=== PATIENT | female | born 1935 | race Caucasian/White ===

== ENCOUNTER 2017-01-01 11:51 | Emergency (ER) | payer MEDICARE, BC ==
[2017-01-01] MEDS ORDERED: Acetaminophen 325 MG Tab PO ONE (12:23)
--- NOTE | 2017-01-01 12:28 | EDM.PDOC ---
ED HPI GENERAL MEDICAL PROBLEM - General Chief Complaint: Head Injury Stated Complaint: FALL Time Seen by Provider: 01/01/17 12:00 Source of Information: Reports: Patient, Family, RN Notes Reviewed (6) - History of Present Illness INITIAL COMMENTS - FREE TEXT/NARRATIVE: 81-year-old female comes in private vehicle having tripped and fallen landing hard with her face on the cement outside a restaurant. She did not suffer any LOC. There was a lot of bleeding from the nose initially. She does have moderate discomfort of her nose. She also did strike her forehead and does have mild to moderate headache. No major neck back chest hip discomfort. She has mild soreness of her knees but has been ambulatory. She denies current abdominal pain and has had no nausea or vomiting status post her fall. Face Pain Score (Numeric/FACES): 8 - Related Data Allergies Allergy/AdvReac Type Severity Reaction Status Date / Time codeine Allergy Abdominal Verified 01/01/17 12:06 Pain Home Meds: Home Meds Aspirin [Halfprin] 81 mg PO DAILY 01/01/17 [History] Past Medical History HEENT History: Reports: Cataract, Impaired Vision Other Cardiovascular History: A flutter hx with ablation Respiratory History: Reports: SOB Musculoskeletal History: Reports: Arthritis, Fracture Psychiatric History: Reports: Depression Endocrine/Metabolic History: Reports: Hypothyroidism, Obesity/BMI 30+ - Past Surgical History HEENT Surgical History: Reports: Adenoidectomy, Cataract Surgery, Tonsillectomy GI Surgical History: Reports: Bariatric Procedure Musculoskeletal Surgical History: Reports: Knee Replacement Dermatological Surgical History: Reports: Skin Biopsy Social & Family History - Family History Family Medical History: Noncontributory - Tobacco Use Smoking Status *Q: Former Smoker Used Tobacco, but Quit: Yes Month Tobacco Last Used: 1964 - Recreational Drug Use Recreational Drug Use: No ED ROS GENERAL - Review of Systems Review Of Systems: See Below Constitutional: Denies: Diaphoresis HEENT: Reports: Nose Pain, Other (She did have major nosebleed but that has stopped). Denies: Dental Pain, Ear Discharge Respiratory: Denies: Shortness of Breath, Pleuritic Chest Pain Cardiovascular: Denies: Chest Pain, Lightheadedness GI/Abdominal: Denies: Abdominal Pain, Nausea, Vomiting Musculoskeletal: Reports: Joint Pain (Mild bilateral knee discomfort, not severe , no major pain with weightbearing). Denies: Neck Pain, Shoulder Pain, Arm Pain , Back Pain, Leg Pain Skin: Reports: Other (She did suffer some abrasion injury to the area of her face just above her upper lip going up to the base of her nose) Neurological: Reports: Headache. Denies: Numbness (Mild to moderate), Tingling , Trouble Speaking, Difficulty Walking, Weakness ED EXAM, HEAD INJURY - Physical Exam Exam: See Below General Appearance: Alert, Mild Distress Head: Atraumatic (There is no swelling or bruising of her scalp. No major swelling or bruising or tenderness of the forehead), Facial Swelling (There is swelling and tenderness of her nose, evidence of prior bleeding, no active bleeding at this time) Ears: Normal External Exam Nose: Nasal Swelling, Dried Blood, Other (Moderate tenderness) Throat/Mouth: Normal Inspection, Normal Oropharynx, Other Neck: Full Range of Motion, Tenderness (She is nontender posterior midline, she does have some tenderness of the left base, no visible swelling.) Respiratory: No Respiratory Distress, Lungs Clear, Normal Breath Sounds Cardiovascular: Regular Rate, Rhythm GI/Abdominal Exam: Soft, Non-Tender Extremities: Other (There is tenderness and mild bruising of the left thumb, she does have some motion but does have pain with flexion and extension of the thumb. No visible deformity.). No: Joint Swelling, Arm Pain, Leg Pain Neurologic: No Motor/Sensory Deficits, Alert, Normal Mood/Affect, Oriented x 3 Skin: Normal Color, Warm/Dry Course - Vital Signs Last Recorded V/S: Last Vital Signs Temp 98.1 F 01/01/17 11:58 Pulse 76 01/01/17 11:58 Resp 24 H 01/01/17 11:58 BP Pulse Ox 92 L 01/01/17 11:58 - Orders/Labs/Meds Orders: Active Orders 24 hr Category Date Time Status Fingers Thumb Lt FA [CR] Stat Exams 01/01/17 12:54 Taken Meds: Medications Discontinued Medications Generic Name Dose Route Start Last Admin Trade Name Freq PRN Reason Stop Dose Admin Acetaminophen 975 mg 01/01/17 12:23 01/01/17 12:29 Tylenol PO 01/01/17 12:24 975 mg NOW ONE Administration - Re-Assessments/Exams Free Text/Narrative Re-Assessment/Exam: 01/01/17 13:30 X-rays of the nose show no fracture, x-rays of the left thumb also show no fracture. She does have some mild stiffness and soreness of her left neck, left posterior base. Or she does not have posterior bony tenderness or severity of pain compatible with fracture. Therefore I am not going to CT her neck at this time. Risk/Benefits of doing that exam have been discussed with patient and her and they agreed to not proceed with next CT at this time. Departure - Departure Time of Disposition: 13:28 Disposition: Home, Self-Care 01 Condition: Fair Clinical Impression: Fall Qualifiers: Encounter type: initial encounter Qualified Code(s): W19.XXXA - Unspecified fall, initial encounter Nasal contusion Qualifiers: Encounter type: initial encounter Qualified Code(s): S00.33XA - Contusion of nose, initial encounter Facial abrasion Qualifiers: Encounter type: initial encounter Qualified Code(s): S00.81XA - Abrasion of other part of head, initial encounter Thumb contusion Qualifiers: Encounter type: initial encounter Damage to nail status: without damage - Discharge Information Referrals: Rod Mckinley MD [Primary Care Provider] - Forms: ED Department Discharge Additional Instructions: Rest, ice packs and elevation as needed for swelling, you may alternate Tylenol and ibuprofen as needed for discomfort, alternate ice and heat for your left neck discomfort may also be helpful. Follow-up clinic if symptoms not resolving as expected, return to ED if symptoms worsening in any way. - My Orders Last 24 Hours: My Active Orders 01/01/17 12:54 Fingers Thumb Lt FA [CR] Stat - Assessment/Plan Last 24 Hours: My Active Orders 01/01/17 12:54 Fingers Thumb Lt FA [CR] Stat
--- NOTE | 2017-01-01 13:22 | CR ---
Nasal bone: views of the nasal bone were obtained. No discrete fracture is seen. Small air-fluid level is suggested to the left maxillary sinus. Minimal mucosal thickening is seen within the right maxillary sinus. Surrounding bony structures appear intact. Impression: 1. Small air-fluid level within the left maxillary sinus. If patient has no symptoms of acute sinusitis this may represent retained secretions. 2. Minimal mucosal thickening within the right maxillary sinus. 3. No definite nasal bone fracture is appreciated. Diagnostic code #3
--- NOTE | 2017-01-01 13:42 | CR ---
Left thumb: Four views of the left thumb were obtained. Moderate degenerative change is noted within the CMC joint with joint space narrowing and osteophytes. Joint space narrowing and osteophytes also noted within the IP joint of the thumb. Soft tissue swelling is identified. No acute fracture or other bony abnormality is appreciated. No opaque foreign object is seen. Impression: 1. Degenerative change as noted above. 2. Soft tissue swelling. 3. No acute bony abnormality is identified. Diagnostic code #2
== END 2017-01-01 13:40 | disposition home or self-care (01) ==
LOC: JD.ED 11:51
DX: S00.33XA Contusion of nose, initial encounter (principal); S60.012A Contusion of left thumb without damage to nail, initial encounter; S00.81XA Abrasion of other part of head, initial encounter; F32.9 Major depressive disorder, single episode, unspecified; E03.9 Hypothyroidism, unspecified; E66.9 Obesity, unspecified; Z98.49 Cataract extraction status, unspecified eye; Z98.84 Bariatric surgery status; Z98.890 Other specified postprocedural states; Z96.659 Presence of unspecified artificial knee joint; Z87.891 Personal history of nicotine dependence; Z79.82 Long term (current) use of aspirin; Z88.5 Allergy status to narcotic agent; W01.198A Fall on same level from slipping, tripping and stumbling with subsequent striking against other object, initial encounter; Z68.43 Body mass index [BMI] 50.0-59.9, adult
CPT/HCPCS: 70160; 73140; 99284; A9270; 99282

== ENCOUNTER 2018-09-24 13:51 | Emergency (ER) | payer MEDICARE, BC ==
[2018-09-24 14:07] VITALS: BP 145/73
[2018-09-24] MEDS ORDERED: HYDROmorphone 1 MG/ML Syringe IM ONE (14:22)
--- NOTE | 2018-09-24 14:28 | EDM.PDOC ---
ED HPI GENERAL MEDICAL PROBLEM - General Chief Complaint: Head Injury Stated Complaint: FALL Time Seen by Provider: 09/24/18 14:02 Source of Information: Reports: Patient, RN Notes Reviewed History Limitations: Reports: No Limitations - History of Present Illness INITIAL COMMENTS - FREE TEXT/NARRATIVE: Patient is an 83-year-old female who presents to the ED for the evaluation of a head injury. The patient states that she was at a restaurant earlier, when she lost her balance in the bathroom and fell. She notes that she has issues tripping over her own 2 feet. She denies any sort of dizziness or lightheadedness that attributed to the fall. She denies any loss of consciousness after the fall. She did hit her head, she thinks on the bathroom door. She has a 2 cm linear laceration to her forehead, with a hematoma surrounding this and to the back of her head as well. She is not complaining of any neck pain or back pain at this time. She notes that she has some minor pain into the right hand and right wrist. However there is no deformity noted to that extremity. She states she does have a headache at this time. She denies being on any blood thinners, but does take a baby aspirin at night time. She would rate her pain at an 8 out of 10 today. Head Pain Score (Numeric/FACES): 7 - Related Data Allergies Allergy/AdvReac Type Severity Reaction Status Date / Time codeine Allergy Abdominal Verified 09/24/18 14:00 Pain Home Meds: Home Meds Aspirin [Halfprin] 81 mg PO DAILY 01/01/17 [History] Past Medical History HEENT History: Reports: Cataract, Impaired Vision Other Cardiovascular History: A flutter hx with ablation Respiratory History: Reports: SOB Musculoskeletal History: Reports: Arthritis, Fracture Psychiatric History: Reports: Depression Endocrine/Metabolic History: Reports: Hypothyroidism, Obesity/BMI 30+ - Past Surgical History HEENT Surgical History: Reports: Adenoidectomy, Cataract Surgery, Tonsillectomy GI Surgical History: Reports: Bariatric Procedure Musculoskeletal Surgical History: Reports: Knee Replacement Dermatological Surgical History: Reports: Skin Biopsy Social & Family History - Family History Family Medical History: Noncontributory - Tobacco Use Smoking Status *Q: Never Smoker - Recreational Drug Use Recreational Drug Use: No ED ROS GENERAL - Review of Systems Review Of Systems: See Below Constitutional: Reports: No Symptoms HEENT: Reports: No Symptoms Respiratory: Reports: No Symptoms Cardiovascular: Reports: No Symptoms Endocrine: Reports: No Symptoms GI/Abdominal: Reports: No Symptoms : Reports: No Symptoms Musculoskeletal: Reports: Arm Pain (right wrist and hand) Skin: Reports: Wound (2cm linear laceration to forehead, mild ecchymosis noted to area around) Neurological: Reports: Headache. Denies: Syncope, Trouble Speaking, Difficulty Walking, Weakness, Change in Speech Psychiatric: Reports: No Symptoms Hematologic/Lymphatic: Reports: No Symptoms ED EXAM, HEAD INJURY - Physical Exam Exam: See Below Exam Limited By: No Limitations General Appearance: Alert, WD/WN, No Apparent Distress Head: Normocephalic, Scalp Hematoma (to right posteriosuperior scalp), Facial Lacerations (2cm linear laceration to forehead). No: Stroud's Sign, Sinus Tenderness, Raccoon Eyes Nexus Criteria: No: Posterior, Midline Cervical Tenderness, Evidence of Intoxication, Altered Level of Consciousness, Focal Neurological Deficit, Painful Distraction Injuries Eyes: Bilateral Eye: EOMI, Normal Inspection, PERRL Ears: Normal External Exam, Normal Canal, Normal TMs Nose: Normal Inspection, No Blood Throat/Mouth: Normal Inspection, Normal Lips, Normal Teeth, Normal Gums, Normal Oropharynx, Normal Voice, No Airway Compromise Neck: Non-Tender, Full Range of Motion, Normal Alignment, Normal Inspection Respiratory: No Respiratory Distress, Lungs Clear, Normal Breath Sounds, No Accessory Muscle Use, Chest Non-Tender Cardiovascular: Normal Peripheral Pulses, Regular Rate, Rhythm, No Murmur Extremities: Normal Inspection, Normal Capillary Refill Neurologic: No Motor/Sensory Deficits, Alert, Normal Mood/Affect, Oriented x 3 Skin: Normal Color, Warm/Dry, Other (2 cm linear laceration to forehead) - Hudson Coma Score Best Eye Response (Nilsa): (4) Open Spontaneously Best Verbal Response (Nilsa): (5) Oriented Best Motor Response (Hudson): (6) Obeys Commands Nilsa Total: 15 ED LACERATION/WOUND & CASS PROC - Laceration/Wound Repair Right Forehead Lac/wound length in cm: 2 Appearance: Superficial Distal NVT: Neuro & Vascular Intact, No Tendon Injury Skin Prep: Chlorhexidine (Hibiciens) Exploration/Debridement/Repair: Wound Explored, In a Bloodless Field, Explored to Base Closed with: Dermabond Sterile Dressing Applied: Nurse Tetanus Status Addressed: Yes Complications: No Course - Vital Signs Last Recorded V/S: Last Vital Signs Temp 97.8 F 09/24/18 14:01 Pulse 76 09/24/18 14:01 Resp 18 09/24/18 14:01 BP 145/73 H 09/24/18 14:01 Pulse Ox 96 09/24/18 14:01 - Orders/Labs/Meds Orders: Active Orders 24 hr Category Date Time Status Hand Comp Min 3V Rt [CR] Stat Exams 09/24/18 14:19 Ordered Head wo Cont [CT] Stat Exams 09/24/18 14:19 Ordered Meds: Medications Discontinued Medications Generic Name Dose Route Start Last Admin Trade Name Freq PRN Reason Stop Dose Admin Hydromorphone HCl 0.5 mg 09/24/18 14:22 09/24/18 14:26 Dilaudid IM 09/24/18 14:23 0.5 mg ONETIME ONE Administration - Radiology Interpretation Free Text/Narrative:: Technique: Multiple axial sections through the brain were obtained. Intravenous contrast was not utilized. Comparison: No prior intracranial imaging is available. Findings: Ventricles along with basal cisterns and sulci over the convexities are moderately prominent. Slightly more atrophy is seen within the frontal regions. Very mild diminished density is noted within the periventricular white matter compatible with small vessel ischemic demyelination change. Diminished density is noted within portions of the basal ganglia compatible with small vessel ischemic demyelination change. No other abnormal parenchymal densities are seen. No evidence of intracranial hemorrhage. No midline shift or mass effect is seen. Bone window settings were reviewed which shows no acute calvarial abnormality. Visualized sinuses are clear. Impression: 1. Senescent change as described above. 2. No acute intracranial abnormality is identified on noncontrast head CT exam. - Re-Assessments/Exams Free Text/Narrative Re-Assessment/Exam: 09/24/18 14:32 Patient presents to the ED for the evaluation of a head injury. I have ordered a head CT without contrast, and a right wrist x-ray to evaluate for any further injury. Have also ordered 0.5 mg IM Dilaudid for pain relief for the patient. Her laceration will need to be fixed, will decide if this needs to be derma bonded or sutured after her imaging is done. 09/24/18 16:[address] is done and read by radiology, there is no sign of any acute intracranial bleed at this time. I did review her wrist x-rays, and there does not appear to be any obvious fracture into her wrist or hand as well. I will fix the patient's laceration on her forehead and have her discharged home safely. 09/24/18 16:30 Patient will be given a soft prefabricated wrist splint for her wrist injury, and be given general recommendations and discharge instructions home. Departure - Departure Time of Disposition: 16:31 Disposition: Home, Self-Care 01 Condition: Fair Clinical Impression: Right wrist pain Laceration of forehead without complication Qualifiers: Encounter type: initial encounter Qualified Code(s): S01.81XA - Laceration without foreign body of other part of head, initial encounter Head injury Qualifiers: Encounter type: initial encounter Qualified Code(s): S09.90XA - Unspecified injury of head, initial encounter - Discharge Information *PRESCRIPTION DRUG MONITORING PROGRAM REVIEWED*: No *COPY OF PRESCRIPTION DRUG MONITORING REPORT IN PATIENT ROMAN: No Instructions: Head Injury, Adult, [id number], Stitches, [place], or Adhesive Wound Closure, [id number] Forms: ED Department Discharge Additional Instructions: You have been evaluated in the ED today for your head injury. Your CT did not demonstrate any acute sign of an intracranial bleed at this visit. Your wrist x-ray did not demonstrate any acute fracture in your wrist or hand. Have been provided with a soft wrist splint for your right hand for further management of your wrist pain. Your forehead laceration was repaired with Dermabond adhesive. You may clean the area near the wound with warm soapy water, however do not do any vigorous scrubbing. This laceration should repair itself nicely within a couple days. You may take 500 mg Tylenol or 600 mg ibuprofen every 6 hours as needed for pain relief. Recommend that you have a close follow-up appointment with your primary care provider early to mid next week. Please return to the ED if her symptoms should change or worsen. - My Orders Last 24 Hours: My Active Orders 09/24/18 14:19 Hand Comp Min 3V Rt [CR] Stat Head wo Cont [CT] Stat - Assessment/Plan Last 24 Hours: My Active Orders 09/24/18 14:19 Hand Comp Min 3V Rt [CR] Stat Head wo Cont [CT] Stat
--- NOTE | 2018-09-24 17:09 | CT ---
Head CT Technique: Multiple axial sections through the brain were obtained. Intravenous contrast was not utilized. Comparison: No prior intracranial imaging is available. Findings: Ventricles along with basal cisterns and sulci over the convexities are moderately prominent. Slightly more atrophy is seen within the frontal regions. Very mild diminished density is noted within the periventricular white matter compatible with small vessel ischemic demyelination change. Diminished density is noted within portions of the basal ganglia compatible with small vessel ischemic demyelination change. No other abnormal parenchymal densities are seen. No evidence of intracranial hemorrhage. No midline shift or mass effect is seen. Bone window settings were reviewed which shows no acute calvarial abnormality. Visualized sinuses are clear. Impression: 1. Senescent change as described above. 2. No acute intracranial abnormality is identified on noncontrast head CT exam. Diagnostic code #2
--- NOTE | 2018-09-25 17:56 | CR ---
Right hand: Four views of the right hand were obtained. Comparison: No prior hand or finger exam. Joint space narrowing is scattered within the MCP, DIP and PIP joints. Degenerative change is noted off the distal navicular bone and within the CMC joint of the thumb. Bony structures are osteopenic. No discrete fracture, dislocation or other bony abnormality is seen. Impression: 1. Degenerative change and osteopenia. Nothing acute is definitely seen. Due to osteopenia, if patient remains symptomatic follow up is then recommended in 10-14 days. Diagnostic code #2
== END 2018-09-24 16:44 | disposition home or self-care (01) ==
LOC: JD.ED 13:51
DX: S01.81XA Laceration without foreign body of other part of head, initial encounter (principal); M25.531 Pain in right wrist; Z88.5 Allergy status to narcotic agent; Z79.82 Long term (current) use of aspirin; W19.XXXA Unspecified fall, initial encounter; Y92.511 Restaurant or cafe as the place of occurrence of the external cause
CPT/HCPCS: 12011; 70450; 73130; 96372; 99284; J1170; 99283